=== PATIENT | male | born 1965 | race Caucasian/White ===

== ENCOUNTER → 2017-07-07 | Outpatient (CLI) | payer BC, OTHER ==
[~2017-07-07] MED LIST: SULFUR HEXAFLUORIDE MICROSPHR 25 MG VIAL. IVP ONE
--- NOTE | 2017-07-07 09:31 | PCVCIMAG ---
APPROVED REPORT Study performed: 07/07/2017 08:15:35 EXAM: Comprehensive 2D, Doppler, and color-flow Echocardiogram Patient Location: Echo lab Status: routine BSA: 2.47 HR: 85 bpmBP: 130/80 mmHg Rhythm: NSR Other Information Study Quality: Poor Indications Abn Chest x-ray, cough Echo Enhancing Agent Indication: Endocardial border delineation Agent(s) / Amount(s) Used: Lumason cc 2D Dimensions IVSd: 10.78 (7-11mm)LVOT Diam: 20.61 (18-24mm) LVDd: 47.65 mm LVPWs: 23.32 mm PWd: 11.21 (7-11mm)Ascending Ao: 28.77 (22-36mm) LVDs: 40.37 (25-40mm) Left Atrium: 37.11 (27-40mm) Gutierrez's LVEF: 49.97 % Biplane EF: 55.0 % Volumes Left Atrial Volume (Systole) Single Plane 4CH: 54.73 mLSingle Plane 2CH: 37.15 mL LA ESV Index: 20.00 mL/m2 Aortic Valve LVOT Max P.78 mmHg LVOT Max V: 1.30 m/s Mitral Valve E/A Ratio: 1.1 MV Decel. Time: 137.38 ms MV E Max Donell.: 1.02 m/s MV A Donell.: 0.93 m/s IVRT: 72.66 ms TDI E/Lateral E': 9.27E/Medial E': 7.85 Medial E' Donell.: 0.13 m/s Lateral E' Donell.: 0.11 m/s Pulmonary Valve PV Peak Gr.: 6.08 mmHg Pulmonary Vein P Vein S: 0.76 m/sP Vein A: 0.35 m/s P Vein D: 0.82 m/sP Vein A Dur.: 69.2 msec P Vein S/D Ratio: 0.93 Tricuspid Valve RAP Estimate: 7.00 mmHg Left Ventricle The left ventricle is normal size. There is normal LV segmental wall motion. Borderline concentric left ventricular hypertrophy. Left ventricular systolic function is normal. The left ventricular ejection fraction is within the normal range. LVEF is >55%. The left ventricular diastolic function is normal. Right Ventricle The right ventricle is normal size. The right ventricular systolic function is normal. Atria The left atrium size is normal. The right atrium size is normal. Aortic Valve The aortic valve is normal in structure. No aortic regurgitation is present. There is no aortic valvular stenosis. Mitral Valve The mitral valve is normal in structure. There is no mitral valve regurgitation noted. No evidence of mitral valve stenosis. Tricuspid Valve The tricuspid valve is normal in structure. There is no tricuspid valve regurgitation noted. Pulmonic Valve The pulmonary valve is normal in structure. There is no pulmonic valvular regurgitation. Great Vessels The aortic root is normal in size. IVC is normal in size and collapses with >50% inspiration Pericardium Small pericardial effusion. <Conclusion> Left ventricular systolic function is normal. There is normal LV segmental wall motion. LVEF >55%. Normal diastolic function. Structural valve disease was absent. No significant regurgitant or stenotic lesions Pulmonary artery pressure could not be reliably ascertained Small pericardial effusion.
== END | disposition home or self-care (01) ==
LOC: PCVCIMAG 07:58
PROVIDERS: ATTEND Internal Medicine
DX: I31.3 Pericardial effusion (noninflammatory) (principal)
CPT/HCPCS: 93306; Q9950